=== PATIENT | female | born 1965 | race Caucasian/White ===

== ENCOUNTER 2019-12-28 09:50 | Outpatient (CLI) | payer OTHER, SELFPAY ==
--- NOTE | 2019-12-28 09:58 | MM_ITS ---
WS: [id number] BILATERAL DIGITAL SCREENING MAMMOGRAPHY WITH CAD CLINICAL INFORMATION: SCREENING HISTORY: Screening mammogram. No current complaints. COMPARISON: December 16, 2018 TECHNIQUE: Bilateral CC and MLO views. FINDINGS: History of bilateral breast reduction Scattered fibroglandular densities bilaterally. No suspicious focal mass, asymmetry, calcifications, or architectural distortion. No evidence of malignancy. Punctate and lucent centered calcifications. MM/[place] [id number] IMPRESSION: BI-RADS: 2-Benign FOLLOW UP: 1 Year Follow-up Recommend return to annual screening mammography.
== END 2019-12-28 09:51 | disposition home or self-care (01) ==
LOC: RADSHAW 09:53
PROVIDERS: PCP Internal Medicine; Visit Provider Obstetrics & Gynecology
DX: Z12.31 Encounter for screening mammogram for malignant neoplasm of breast (principal)
CPT/HCPCS: 77067

== ENCOUNTER → 2022-09-17 14:42 | Outpatient (BNVA) | payer OTHER, BC, SELFPAY | PROVIDERS: PCP Internal Medicine; Visit Provider Podiatrist Foot & Ankle Surgery | DX: G57.62 Lesion of plantar nerve, left lower limb (principal); M20.42 Other hammer toe(s) (acquired), left foot | CPT/HCPCS: 73630 ==

== ENCOUNTER 2023-05-23 05:42 | Day surgery (SDC) | payer BC, SELFPAY ==
[2023-05-23] VITALS (7 sets, daily range): BP systolic 96–157; BP diastolic 64–111; PULSE 66–86; RESP 12–17; TEMP 36.2–36.4; O2SAT 93–98; BMI 34.4
--- NOTE | 2023-05-23 | XR_ITS ---
WS: [id number] Exam: XR foot LT 2V [id number] Date/Time of Exam: 05/23/2023 12:00 AM Reason For Exam: OR PICS AP and lateral intraoperative images of the LEFT forefoot are submitted. A PIP joint replacement of t he second toe is noted. There is also an osteotomy with screws involving the head of the second metat arsal. Incidentally noted is a metallic foreign body within the soft tissues between the first and se cond toes that may represent a fractured sewing needle.
--- NOTE | 2023-05-23 06:14 | W.PM.OPSUD ---
Surgery/Procedure H&P Update DATE OF PROCEDURE: May 23, 2023 DATE H&P PERFORMED: 04/30/23 H&P UPDATE INFORMATION: I have reviewed H&P completed within last 30 days, I have examined patient prior to procedure, No changes to prior documentation and H&P is in [facility] date indicated CHANGES TO PREVIOUS DOCUMENTATION: None PREOP DIAGNOSIS: Second hammertoe deformity, left foot. PLANNED PROCEDURE: Operation Date: 05/23/23 07:00 Proposed Procedures p ?Left foot deep tendon transfer, Left second metatarsal Calli osteotomy and Left second hammertoe correction [id number],M77.42,M79.672,M20.42,M25.874(Left) - Brendan Gutierrez DPM s Hammertoe Correction(Left) - Brendan Gutierrez DPM
--- NOTE | 2023-05-23 06:15 | PM.OP ---
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 Procedure done: Left foot deep tendon transfer. CPT 04570 Left second metatarsal Calli osteotomy. CPT 14786 Left second hammertoe correction. 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 Pain has been progressive over the past 3 years and is affecting patient's quality of everyday life at this point. Would like to discuss surgical options. Recommended Calli Osteotomy, flexor tendon transfer and hammertoe correction of the left second toe and metatarsal phalangeal joint. I reviewed at length with the patient, the risks, potential complications, benefits, alternatives, expectations, and typical outcomes associated with the surgery. The risks and potential complications were explained in detail, including but not limited to infection, wound dehiscence or soft tissue complications, bleeding and hematoma, chronic edema, neuritis or nerve damage producing numbness or chronic pain, CRPS, failure to relieve pain or worsening pain, thick / painful / unsightly scar, limited motion / stiffness, malposition, delayed union, malunion, or nonunion, fracture, reaction to implants, anesthetic complications, venous thromboembolism, and deformity recurrence. I discussed the notion of no regrets with the patient as it pertains to complications and outcomes. The patient seemed to understand the nature of the proposed care and required convalescence. They asked appropriate questions, answered to their satisfaction. They are aware no guarantees can be made as to a satisfactory outcome and they understand there may be other possible unforeseen complications or outcomes not listed here that will be treated accordingly if they arise. There were no written or implied guarantees given to the patient. They gave informed consent to proceed. Procedure: Under mild sedation the patient was brought to the operating room and remained on the gurney in supine position. A timeout was performed. Anesthesia was then administered by the anesthesia service. Local anesthesia was injected by myself consisting of 10 cc of 0.5% Marcaine plain and additional 10 cc of Exparel subcutaneously dorsally and plantarly at the operative site left foot. Well-padded pneumatic tourniquet was applied to the left ankle. The left lower extremity was scrubbed, prepped and draped utilizing normal aseptic technique. Left foot was exanguinated with an Esmarch bandage and tourniquet inflated to 250 mmHg. Attention was directed to the left foot where the second metatarsal phalange joint was loaded and noted to deviate medially also there is a flexor contracture of the left second hammertoe with apex of the deformity at the proximal interphalangeal joint. A linear longitudinal incision was made through skin with a #15 blade dorsally at the left foot starting at the proximal interphalangeal joint coursing proximal to the second metatarsal phalangeal joint through skin with #15 blade with dissection carried down through subcutaneous tissue to the layer of extensor tendon at the level of the proximal phalangeal joint of the left second toe which was transected and retracted proximally. The head of the proximal phalanx was transected with a sagittal saw perpendicular to its longitudinal axis and the base of the intermediate phalanx was denuded of articular surface utilizing a rongeur. The left second toe was distracted and the flexor digitorum longus tendon was identified, split longitudinally and transected, the flexor digitorum longus tendon was then rerouted dorsally both medial and lateral to the proximal phalanx diaphysis and held under traction with the second toe rectus and secured with 4-0 nylon dorsally effectively transferring the flexor digitorum longus tendon to help correct sagittal plane contracture of the left second toe. The incision was irrigated with copious months of sterile skin solution. Attention was then directed to the proximal interphalangeal joint left second toe where a intramedullary implant provided by Parul mathur was secured this was a 0 degree implant and held the second toe rectus for arthrodesis at the left second proximal phalangeal joint. The extensor tendon was reapproximated utilizing 4-0 Vicryl dorsally. Attention was then directed to the left second metatarsal where a Calli osteotomy was performed, dorsal shelf was transected, the head of the second metatarsal was translated 2 to 3 mm proximally and secured and fixated with snap off screw x 2 by [place]hill 28. Excellent bony apposition and compression noted. Excellent alignment and offloading of the second metatarsal head was appreciated intraoperatively and with AP, oblique and lateral view of intraoperative C arm. The incision was further irrigated with saline solution. Subcutaneous tissue was reapproximated utilizing 4-0 Vicryl and skin with 4-0 nylon. Dressings consisting of Adaptic, sterile 4 x 4, Kerlix and Marcin wrap followed by application of cam boot to the left lower extremity. Tourniquet was then deflated and a prompt hyperemic response was noted to the distal digits of the left foot. Patient tolerated the procedure and anesthesia well and was transferred to the PACU with vital signs stable and vascular status intact. Following a period of postoperative monitoring she will be discharged home, may be weightbearing below threshold of pain with cam boot, is to elevate and rest her foot. Was given at home care instructions, scheduled follow-up and my cell phone number to contact with any postoperative questions or concerns.
[2023-05-23] MEDS: sodium chloride 0.9% 1,000 ML 30 ML IV (06:24)
--- NOTE | 2023-05-23 06:47 | ANES.PREANE2 ---
Pre-Anesthetic Assessment Height/Weight: Height 1.7 m Weight 99.79 kg Temp Pulse Resp BP Pulse Ox O2 Del Method 97.4 F L 86 17 157/111 98 Room Air 05/23/23 06:07 05/23/23 06:07 05/23/23 06:07 05/23/23 06:07 05/23/23 06:07 05/23/23 06:08 Preop Diagnosis: Second hammertoe deformity, left foot. Operation Date: 05/23/23 07:00 Proposed Procedures p ?Left foot deep tendon transfer, Left second metatarsal Calli osteotomy and Left second hammertoe correction [id number],M77.42,M79.672,M20.42,M25.874(Left) - Brendan Gutierrez DPM s Hammertoe Correction(Left) - Brendan Gutierrez DPM Last intake: Intake Last Liquid Date 05/22/23 Last Liquid Time 22:00 Last Solid Date 05/22/23 Last Solid Time 18:00 Social No alcohol and No tobacco Exam alert, oriented x 3, clear to auscultation bilaterally and regular rate & rhythm Airway Submandibular: within normal limits Cervical ROM: within normal limits Mallampati: Class I Pulmonary None reported CV/HEM None reported GI None reported Metabolic None reported Anesthetic Plan ASA status: 2 Anesthesia: Anesthesia Evaluation and Choice Medications/Allergies Home Medications Medication Instructions Recorded Confirmed Last Taken Type calcium 100 mg capsule 100 mg PO DAILY 05/22/23 05/22/23 05/22/23 History cholecalciferol (vitamin D3) 100 100 mcg PO DAILY 05/22/23 05/22/23 05/22/23 History mcg (4,000 unit) capsule estradiol 1 mg tablet 1 mg PO DAILY 05/22/23 05/22/23 05/22/23 History meloxicam 15 mg tablet 15 mg PO DAILY PRN Pain 05/22/23 05/22/23 Unknown History multivitamin 1 tab PO DAILY 05/22/23 05/22/23 05/22/23 History hydrocodone 7.5 mg-acetaminophen 1 tab PO Q6H PRN pain 7 days #28 05/23/23 Unknown Rx 325 mg tablet tabs Allergies Allergy/AdvReac Type Severity Reaction Status Date / Time No Known Allergies Allergy Verified 05/23/23 06:05 Current Medications Generic Name Dose Route Start Last Admin Trade Name Freq PRN Reason Stop Dose Admin Sodium Chloride 1,000 mls @ 30 mls/hr 05/23/23 06:00 05/23/23 06:24 Sodium Chloride 0.9% IV 05/24/23 05:59 30 mls/hr .Q24H JAN Administration PFSH Anesthesia Social History Smoking and tobacco/nicotine status: never used tobacco/nicotine Data Anesthesia Cardiac Studies: No Data to Display
[2023-05-23] MEDS: ceFAZolin 2,000 MG in sodium chloride 0.9% (plus) 50 ML 100 MG IV (06:59)
[2023-05-23] MEDS: BUPivacaine 0.5% INJ 10 mL INJECTION (07:19)
[2023-05-23] MEDS: BUPivacaine liposome 13.3 mg/mL SDV 10 mL 133 MG INJECTION (07:19)
--- NOTE | 2023-05-23 08:20 | W.PM.BPON ---
Date of Procedure: 05/23/23 Surgeon: Brendan Gutierrez DPM Electronics Utility Worker(s): Steve Procedure(s) performed: Left second metatarsal osteotomy and hammertoe correction with flexor tendon transfer Findings of the procedure(s): None Estimated blood loss: 2 Specimen(s) removed: None Post-operative diagnosis: Left metatarsalgia, left flexor tendon contracture and left second hammertoe deformity
[2023-05-23] MEDS: HYDROcodone-acetaminophen 7.5-325 mg Tablet 1 TAB PO (08:37)
--- NOTE | 2023-05-23 09:49 | ANE.PACU2 ---
Inpatient post-anesthesia follow up: Vital signs: Temperature 97.4 F Pulse Rate 69 Respiratory Rate 17 Blood Pressure 107/72 Pulse Oximetry 94 Oxygen Delivery Me thod Room Air Oxygen Flow Rate Fraction of Inspir ed Oxygen Hydration adequate: Yes Nausea and vomiting: No Pain level: 1 Mental status: Baseline
== END 2023-05-23 09:14 | disposition home or self-care (01) ==
PROVIDERS: PCP Internal Medicine; Visit Provider Podiatrist Foot & Ankle Surgery
PROC: (CPT 28308; principal; 2023-05-23 07:00)
PROC: (CPT 28285; 2023-05-23 07:00)
DX: M77.42 Metatarsalgia, left foot (principal); M62.472 Contracture of muscle, left ankle and foot
CPT/HCPCS: 27691; 28285; 28308; 73620; 76000; C1713; C9290; J0690; J2371; J2405; J2704; J3010; J3490; J7030

== ENCOUNTER → 2023-06-03 11:08 | Outpatient (BNVA) | payer BC, SELFPAY | PROVIDERS: PCP Internal Medicine; Visit Provider Podiatrist Foot & Ankle Surgery | DX: Z98.890 Other specified postprocedural states (principal); M77.42 Metatarsalgia, left foot; M20.42 Other hammer toe(s) (acquired), left foot; M25.872 Other specified joint disorders, left ankle and foot | CPT/HCPCS: 73630 ==

== ENCOUNTER → 2023-07-02 14:51 | Outpatient (BNVA) | payer BC, SELFPAY | PROVIDERS: PCP Internal Medicine; Visit Provider Podiatrist Foot & Ankle Surgery | DX: Z98.890 Other specified postprocedural states (principal) | CPT/HCPCS: 73630 ==